=== PATIENT | female | born 1935 | race Caucasian/White ===

== ENCOUNTER 2018-01-07 08:41 | Inpatient (IN) ==
[~2018-01-07 08:41] MED LIST: Bupivacaine/Epinephrine 0.5% Inj 50 ML Vial ONE; Gelatin Size 100 Topical Foam ONE; Thrombin Topical Soln 5,000 UNIT Vial TOPICAL ONE; ceFAZolin 2 GM Premix Inj 2 GM/50 ML PIGGYBACK IV.SIG ONE
[2018-01-07] MEDS ORDERED: Chlorhexidine Gluconate 2% 1 Pack (2 Cloths) TOPICAL SCH ×2 (09:15→09:30)
[2018-01-07] MEDS ORDERED: Metoprolol Tartrate 25 MG Tablet PO SCH (09:15)
[2018-01-07] MEDS ORDERED: Sod Chloride 0.9% Inj 1,000 ML IV.SIG SCH (09:30)
[2018-01-07] MEDS ORDERED: Vancomycin Inj 1 GM/200 ML PIGGYBACK IV.SIG SCH (10:00)
[2018-01-07] MEDS ORDERED: Sodium Chlor 0.9% Inj 500 ML IV.SIG SCH (10:00)
[2018-01-07] MEDS ORDERED: Metoprolol Inj 5 MG/5 ML Vial IV.PUSH ONE (12:46)
[2018-01-07] MEDS ORDERED: Lidocaine PF 1% Inj 5 ML Syringe INFILTRATN ONE (12:46)
[2018-01-07] MEDS ORDERED: Propofol Inj 500 MG/50 ML Vial ONE (14:01)
[2018-01-07] MEDS ORDERED: HYDROmorphone PF Inj 2 MG/ML Vial ONE ×2 (17:28→17:41)
[2018-01-07] MEDS ORDERED: fentaNYL Citrate Inj 100 MCG/2 ML Ampul ONE ×2 (17:38)
--- NOTE | 2018-01-07 17:48 | XR ---
EXAM DATE: 01/07/2018 5:45 PM EDT AGE/SEX: 82 years / Female INDICATIONS: Fusion L4,L5 with screws and rods placement. CLINICAL DATA: This is the patient's initial encounter. Patient reports that signs and symptoms have been present for 1 day and indicates a pain score of Nonresponsive. MEDICAL/SURGICAL HISTORY: None. None. COMPARISON: No prior exams available for comparison. FINDINGS: AP and lateral spot images of the lumbar spine shows left-sided posterior fusion hardware in the lowe r lumbar spine. CONCLUSION: Intraoperative images showing posterior fusion hardware on the left. Electronically signed by: Arben Garza MD 01/07/2018 5:47 PM EDT
[2018-01-07] MEDS ORDERED: *Meperidine Inj 25 MG/ML Vial PERIprocedural Use ONLY ONE (17:53)
[2018-01-07] MEDS ORDERED: Acetaminophen 325 MG Tablet PO PRN (18:02)
[2018-01-07] MEDS ORDERED: Bisacodyl 10 MG Supp RECTAL PRN (18:02)
[2018-01-07] MEDS ORDERED: Naloxone Inj 0.4 MG/ML Vial IV.PUSH PRN (18:06)
[2018-01-07] MEDS ORDERED: HYDROmorphone PCA Inj 6 MG/30 ML PCA.VIAL PCA ONE (18:20)
[2018-01-07] MEDS: HYDROmorphone PCA Inj 6 MG/30 ML PCA.VIAL PCA PRN ×2 (18:30→23:53)
--- NOTE | 2018-01-07 18:30 | P.CONCC ---
History of Present Illness Primary Care Provider: Tonja Kowalski MD Family Provider: Tonja Kowalski MD History of Present Illness: 82-year-old female with multiple medical issues underwent elective L4-L5 laminectomy, interbody arthrodhesis using PEEK cage and autologous bone graft, L4-L5 instrumental fixation using transpedicular screws and rods, L4-L5 posterolateral fusion using autologous bone graft and demineralized bone matrix and microsurgical dissection by Dr. Aldrich. The procedure was uncomplicated and postprocedure the patient was admitted to ICU for medical management. Patient was evaluated in the PACU where she is comfortable, arousable but still very drowsy. Review of Systems unobtainable due to mental condition PMFSH - History History Provided By: Patient - Medical History Medical History: Medical History (Last Updated 01/07/18 @ 09:31 by Hemanth Marquez RN) Stroke (Acute) Anxiety Arthritis Basal cell carcinoma Chronic back pain Gastroparesis H/O cancer of uterus High cholesterol History of anesthesia reaction Hypertension Pulmonary embolism - Surgical History Surgical History: Surgical History (Last Updated 01/07/18 @ 09:31 by Hemanth Marquez RN) H/O section History of bilateral knee arthroplasty History of hysterectomy for cancer History of right-sided carotid endarterectomy History of total replacement of right shoulder joint History of total right hip replacement Hx of appendectomy Status post cataract extraction of both eyes with insertion of intraocular lens - Tobacco History Second Hand Smoke Exposure: No Smoking Status: Never smoker - Alcohol History How Often Do You Have a Drink Containing Alcohol: Never - Substance Use History Substance History: No History of Abuse - Travel History Recent Travel in the [place] Within the Last 8 Weeks: No Recent Travel Out of the Country Within the Last 8 Weeks: No Medications and Allergies Active Medications: Active Medications Acetaminophen (Tylenol) 650 mg PO Q4H PRN PRN Reason: TEMPERATURE > 101.5 F Hydrocodone Bitart/Acetaminophen ([place] 10/325) 1 tab PO Q4H PRN PRN Reason: Pain Scale 1 To 5 Al Hydroxide/Mg Hydroxide (Milk Of Magnesia Liq) 30 ml PO Q12H PRN PRN Reason: Mild Constipation Albuterol (Albuterol Neb (Prn)) 2.5 mg NEB Q4HR NEB PRN PRN Reason: WHEEZING Bisacodyl (Dulcolax Supp) 10 mg RECTAL DAILY PRN PRN Reason: SEVERE CONSITIPATION Chlorhexidine Gluconate (Chlorhexidine 2% Cloth) 3 pack TOPICAL SHELF STOCKER [facility] Stop: 01/10/18 09:15 Last Admin: 01/07/18 08:00 Dose: 3 pack Chlorhexidine Gluconate (Chlorhexidine 2% Cloth) 3 pack TOPICAL SHELF [employer] [facility] Stop: 01/09/18 09:31 Lactated Ringer's (Lr 1000 Ml Inj) 1,000 mls @ 30 mls/hr IV.SIG .Q24H [facility] Stop: 01/10/18 09:15 Last Admin: 01/07/18 09:45 Dose: 30 mls/hr Sodium Chloride (Ns Inj) 500 mls @ 30 mls/hr IV.SIG .Q10H [facility] Stop: 01/10/18 09:15 Sodium Chloride (Ns Inj) 1,000 mls @ 30 mls/hr IV.SIG .Q24H [facility] Vancomycin/Sodium Chloride (Vancomycin Inj) 1 gm in 200 mls @ 200 mls/hr IV.SIG [employer]LF [employer] [facility] Stop: 01/10/18 09:21 Last Admin: 01/07/18 13:39 Dose: 200 mls/hr Cefazolin Sodium/Dextrose (Ancef 2 Gm Premix Inj) 2 gm in 50 mls @ 100 mls/hr IV.SIG Q8H [facility] Stop: 01/08/18 11:29 Potassium Chloride/Sodium Chloride (Ns + Kcl 20 Meq Inj) 1,000 mls @ 100 mls/ hr IV.CONT .Q10H [facility] Hydromorphone/Sodium Chloride (Dilaudid Administrative Law Judge Inj) 6 mg in 30 mls @ 0 mls/hr [employer] BW DEVELOPER UNSCH PRN PRN Reason: per SAP BW DEVELOPER parameters Lactulose (Lactulose Liq) 30 ml PO DAILY PRN PRN Reason: SEVERE CONSITIPATION Metoprolol Tartrate (Lopressor) 25 mg PO [employer] Stop: 01/10/18 09:15 Last Admin: 01/07/18 09:50 Dose: Not Given Naloxone HCl (Narcan Inj) 0.4 mg IV.PUSH PRN PRN PRN Reason: SEE LABEL COMMENTS Povidone Iodine (Betadine 5% Antisepsis Kit) 1 applicatio EACH NARE [employer] Stop: 01/10/18 09:15 Last Admin: 01/07/18 09:49 Dose: 1 applicatio Senna/Docusate Sodium (Indy-Colace) 1 tab PO BID HERMAN Sennosides (Senokot) 17.2 mg PO Q12H PRN PRN Reason: Moderate Constipation Allergies Allergy/AdvReac Type Severity Reaction Status Date / Time adhesive Allergy Severe Hives; Verified 01/06/18 14:07 skin tear morphine Allergy Severe Headache Verified 01/06/18 14:07 simvastatin Allergy Severe CRAMPS Verified 01/06/18 14:07 cortisone Allergy Unknown unknown Verified 01/06/18 14:07 Home Medications Medication Instructions Recorded Confirmed Type aspirin 81 mg PO DAILY 01/06/18 01/07/18 History clotrimazole-betamethasone 1 applic TOPICAL BID PRN 01/06/18 01/07/18 History gabapentin 600 mg PO HS 01/06/18 01/07/18 History hydrocodone-acetaminophen 1 tab PO TID PRN 01/06/18 01/07/18 History lisinopril 5 mg PO DAILY 01/06/18 01/07/18 History methocarbamol 500 mg PO TID 01/06/18 01/07/18 History metoprolol succinate 12.5 mg PO DAILY 01/06/18 01/07/18 History multivitamin 1 tab PO DAILY 01/06/18 01/07/18 History pravastatin 20 mg PO HS 01/06/18 01/07/18 History Physical Exam Vital signs: Vital Signs 01/07/18 09:37 Temperature 97.8 F Pulse Rate 61 Respiratory Rate 18 Blood Pressure 140/53 L Pulse Oximetry 100 Intake & Output 01/06/18 01/07/18 01/07/18 18:59 06:59 18:59 Intake Total 2250 / 2250 Output Total 800 / 800 Balance 1450 / 1450 Weight 74 kg Intake: Anesthesia Amount 2250 / 2250 Output: Estimated Blood Loss 200 / 200 Urine Amount (Catheter) 600 / 600 Indwelling Urethral Catheter 600 / 600 Other: Weight On Admission 74 kg - Constitutional mild distress, somnolent - Routine HEENT Exam Head: Present: normocephalic Eye: Present: PERRL, normal accommodation ENT: Present: mucous membranes moist - Routine Neck Exam Present: supple, full ROM. Absent: JVD, carotid bruit - Routine Respiratory Exam Absent: accessory muscle use, rhonchi, stridor, wheezes - Routine Cardiovascular Exam Present: RRR, S1, S2 - Routine Abdominal Exam Present: soft, normoactive bowel sounds. Absent: tenderness, distended - Routine Extremities Exam Absent: cyanosis, clubbing, edema - Routine Skin Exam Present: intact - Routine Neurological Exam Present: alert, oriented X3 - Detailed Neurological Exam: Coma Scale Eye Opening: To sound Verbal Response: Oriented Motor Response: Obey commands Dell Coma Scale Total: 14 - Urinary Catheter Management Indwelling Urethral Catheter Cath placed during this visit: yes Reason for continuing: Hourly intake/output Insertion date: 01/07/18 Insertion time: 13:00 Assessment and Plan - Assessment and Plan Plan: Chronic back pain -Status post L4-L5 laminectomy and interbody arthrodhesis -Gabapentin -Hydromorphone as needed -Methocarbamol -PT and OT as tolerated High cholesterol -Pravastatin Hypertension -Metoprolol -Lisinopril Anxiety -Benzos as needed if indicated GI prophylaxis -Teds SCDs -Early aggressive mobilization -DVT prophylaxis per neurosurgeon -Regular diet Critical Care: The total critical care time was 35 minutes. Time to perform other separately billable procedures was not included in the critical care time.
[2018-01-07] MEDS ORDERED: ceFAZolin 2 GM Premix Inj 2 GM/50 ML PIGGYBACK IV.SIG SCH (19:00)
--- NOTE | 2018-01-07 20:00 | P.OP ---
Date of procedure: 01/08/18 Procedure: L4-L5 left laminectomy, interbody arthrodhesis using PEEK cage and autologous bone graft, L4-L5 instrumental fixation using transpedicular screws and rods, L4 -L5 posterolateral fusion using autologous bone graft and demineralized bone matrix. Microsurgical dissection Anesthesia: CARMELLA Surgeon: Balta Aldrich MD Cylinder Worker: Grace Jamil Pathology: none sent Operation and Findings: INDICATIONS FOR THE SURGICAL PROCEDURE Ms Osman is a 82 year-old female who presented with intractable mechanical back pain and china evidence of left L5 lower extremity radiculopathy. She failed maximum nonsurgical management including multiple modalities of conservative treatment as well as pain management interventions by an interventional pain specialist. A surgical decompression and arthrodhesis were indicated as a last resource. The [id number] details of the procedure, indications, alternatives, risks and potential complications were fully discussed with the patient. The patient fully understood. All the questions were answered. No guarantees were given. The patient voiced requesting the procedure and provided informed consents. The patient was offered the alternative of delaying the procedure and continuing with nonsurgical management. DETAILS OF THE SURGICAL PROCEDURE Prior to the procedure, the surgical incision was marked in the preoperative surgical holding room, and the procedure, risks, and potential complications revisited with the patient. Placement of electrodes for intraoperative neurophysiological monitoring was completed. The patient was taken to the operative room, and following induction of general anesthesia, endotracheal intubation was performed. A Fontaine catheter, bilateral MICHELET hose and sequential compression devices were placed and kept throughout the procedure. The patient was positioned prone, over a Ugo table over a Mekhi frame. All pressure in the preoperative surgical holding room points were carefully padded with eggcrate and gel mattress. The eyes were tapped shut after ointment was applied by the nesthesiologist to prevent corneal abrasion. A Radha hugger was placed over the expossed lower body to maintain control of the core body temperature. The electrophysiological team placed the needles and electrodes in their proper location and baseline SSEP's and motor evoked potentials were registered prior and following the positioning. The entrance to each pedicles was marked using a C arm. The lumbar region was prepped and draped in the usual sterile fashion. The surgical procedure was performed in several steps as follow: SURGICAL APPROACH Once the patient was positioned, a localizing cross-table lateral x-ray was performed with a C-arm. A left paramedian small incisions was outlined on the skin approximately 3cm from the midline. The skin incisions were made with a # 10 blade. Small bleeders were controlled with the cautery. The dissection was then carried out into deper planes and through the thoracolumbar fascia with a Bovie. The intermuscular septum was identified and the myscles were blunted dissected along the septum on the left side. The facets and transverse process of L4, L5 were exposed and the proper anatomical landmarks were identidied. A microsurgical self-retaining retractor was placed on the incision, and a localizing lateralizing cross-table x-ray was performed with an instrument underneath a lamina of the lumbar spine. There was a bilateral pars defect with gross instability of the bony structures. INSTRUMENTAL FIXATION At this point in the procedure, placement of left transpedicular screws was necessary for stabilization of the spine. Initially, the entry point for the screw was selected anatomically at the junction of the facet, with the transverse process, and the pars interarticularis at L4-L5. This was started with a Giamshetti needle followed by the use of a wisdom wire. A tap was used to create the threads for the screws. Finally left transpedicular screws were carefully placed on the left side at L4, L5, under fluoroscopic visualization. An appropriate purchase was achieved with all screws. The position of each screw was assessed anatomically with an AP, lateral, oblique Xrays. An intraoperative scan view of the spine was then performed using the iso -centric c-arm. Each screw was then assessed electrophysiologically with a nerve stimulator. SURGICAL DECOMPRESSION There was significant mass effect with compression of the neural structures. In order to relieve neural compression, it was necessary to perform a decompressive laminectomy, with decompression of the spinal canal and bilateral lateral recesses. Note that the scope of such decompression was significantly more extensive than the minimal exposure necessary to perform an interbody fusion, as there was extreme facet arthropathy with loss of the disk spaces and severe stenosis cause by the hyperthrophic joint facets. At this point of the procedure the operative microscope was draped in the usual sterile fashion and brought to the field. The rest of the surgical procedure was performed using microdissection technique with the exception of the closure. Under the operating microscope, a left decompressive laminectomy was carried out at L4-5 as follow: The laminae, base of the spinous processes and facets were carefully drilled exposing the ligamentum flavum. The facets were abnormal with severe facet arthropathy, vacuum facets, and mass effect over the neural structures. A broad disk protusion was contributing to compression of the neural structures and exiting L5 nerve root. A near complete facetectomy was necessary. The ligamentum flavum appeared hypertrophic, resulting on mass effect on the dorsal surface of the neural structures. The superior free border of the ligamentum flavum was elevated with a ligament dissector and the ligamentum flavum was removed with a 3 and 4 mm Kerrison forceps. The ligament was very adherent to the dural sac and during the dissection, ans extreme care was taken during the dissection. The L5 exiting nerve root was identified, and a wide foraminotomy was performed with a Kerrison in their trajectory towards the neural foramenat. Epidural veins located laterally to the dural sac were coagulated with the bipolar cautery, and then incised using microscissors. Gentle medial retraction of the dural sac allowed me to expose the disc space for the discectomy. Upon completion of the discectomy, an excellent decompression of the neural structures was achieved. INTERBODY ARTHRODHESIS At this point of the procedure, the annulus fibrosus of the disk was carefully coagulated with a bipolar cautery and incised using an 11 bladed knife. Then, a microdiscectomy was carried out in a standard fashion using a combination of straight and up-biting pituitary forceps. A reverse angle curette was applied underneath the posterior longitudinal ligament, and used to push the disk fragments into the disk space, so they can be safely removed with a pituitary forceps. Once the discectomy was completed, it was necessary to decorticate the endplates, in order to eliminate the cartilaginous endplate and to expose healthy bone appropriate to perform the interbody fusion. The endplates at L4-5 were then thoroughly decorticated using increasing size bone jennie and ring curets, eliminating the cartilaginous fragments from both, the superior and inferior endplates. A disk space distractor was applied to the pedicle screws and gentle distraction was applied. This maneuver was assisted by the use of a disk distractor. Severe facet arthropathy was noted. Once a thorough preparation of the disk space was achieved, the disk space was irrigated with antibiotic solution, and the interbody fusion was performed by carefully impacting a PEEK cage filled with autologous bone graft. The use of several shoe impactors with different angulation, allowed me for an excellent, proper position of the interbody cage. A solid position of the cage with good purchase was achieved. The position of the cages were assessed anatomically with a probe and radiologically with the C-arm. POSTEROLATERAL FUSION Initially, the left transverse processes of the vertebral bodies, lateral surface of the facets and the lateral gutters of the spine were carefully cleaned, eliminating all soft tissue and muscle attachments. The area was then irrigated with a large amount of antibiotic solution. Subsequently, the transverse processes, lateral surface of the facets, and lateral gutters of the spine were thoroughly decorticated using the TPS drill with a 5mm cutting viki, exposing cancellous bone, in preparation for the posterolateral fusion. The incision was again irrigated with antibiotic solution. Then, the posterolateral fusion was then performed by carefully packing the left lateral gutter of the spine at L4-5 with autologous bone combined with demineralized bone matrix. COMPLETION OF THE INSTRUMENTATION AND CLOSURE The rods were brought to the field, applied to all the screws, and the screw caps were sequentially applied. Compression was performed between the pedicle screws, and final tightening of the screws was completed using a torque wrench. The incision was again thoroughly irrigated with several liters of antibiotic solution, and hemostasis secured with the bipolar cautery. A Valsalva Maneuver performed by the anesthesiologist failed to show any evidence of cerebrospinal fluid leak or bleeding. A 10 mm Ugo-Wesley drain was left in the epidural space and externalized through a separate stab incision. The incision was then closed in planes. 0 Vicryl was used in an interrupted fashion to close the thoracolumbar fascia and the superficial fascia. The subcutaneous tissue was then approximated using 3-0 Vicryl in an interrupted fashion. Special care was taken to avoid space. The skin was then closed with 4-0 Vicryl in a running, subcuticular fashion. Dermabond was applied to the skin. Each plane of closure was irrigated with antibiotic solution. At the end of the procedure the sponge, needle and instrument counts were all correct. Estimated blood loss was 200 cc or less. No blood transfusion was given. The entire procedure was performed using continuous electrophysiological monitoring of the somatosensorial evoked potentials and EMG. The patient received prophylactic antibiotics. The patient was then extubated and transferred to the recovery room in stable condition.
[2018-01-07] MEDS: Senna/Docusate Sodium 8.6/50 MG Tablet PO SCH (21:33)
[2018-01-07] MEDS: ceFAZolin 2 GM/NS 100 ML IV; Q8H IV.SIG SCH ×2 (21:34)
[2018-01-08] MEDS: ceFAZolin 2 GM/NS 100 ML IV; Q8H IV.SIG SCH ×4 (05:12→13:07)
[2018-01-08 05:31] LABS: Hematocrit 37.8 % (35.0-46.0); Hemoglobin 12.4 gm/dL (11.6-15.3); Lymph # (Auto) 0.4 th/mm3 (1.0-4.8); Lymph % (Auto) 5.7 % (9.0-44.0); Mean Corpuscular HGB Conc 32.8 % (32.0-36.0); Mean Corpuscular Hemoglobin 31.8 pg (27.0-34.0); Mean Platelet Volume 8.5 fL (7.0-11.0); Mono # (Auto) 0.3 th/mm3 (0.0-0.9); Mono % (Auto) 3.6 % (0.0-8.0); Neut # (Auto) 6.7 th/mm3 (1.8-7.7); Neut % (Auto) 90.7 % (16.0-70.0); Platelet Count 126 th/mm3 (150-450); Red Cell Distribution Width 13.4 % (11.6-17.2); White Blood Count 7.4 th/mm3 (4.0-11.0)
[2018-01-08 05:55] LABS: Calcium 8.3 mg/dL (8.5-10.1); Carbon Dioxide 28.4 meq/L (21.0-32.0); Potassium 5.4 meq/L (3.5-5.1)
[2018-01-08] MEDS: Lisinopril 5 MG Tablet PO SCH (08:28)
[2018-01-08] MEDS: Senna/Docusate Sodium 8.6/50 MG Tablet PO SCH ×2 (08:37→20:54)
[2018-01-08] MEDS: Methocarbamol 500 MG Tablet PO SCH ×3 (08:37→18:41)
[2018-01-08] MEDS: HYDROmorphone PCA Inj 6 MG/30 ML PCA.VIAL PCA PRN (08:38)
[2018-01-08] MEDS ORDERED: Dextrose 50% in Water 50 ML Vial IV.PUSH ONE (08:48)
[2018-01-08] MEDS ORDERED: Melatonin 5 MG Tablet PO PRN (08:57)
--- NOTE | 2018-01-08 09:01 | P.PNCC ---
Subjective Subjective Remarks/Hospital Course: 82-year-old female with multiple medical issues underwent elective L4-L5 laminectomy, interbody arthrodhesis using PEEK cage and autologous bone graft, L4-L5 instrumental fixation using transpedicular screws and rods, L4-L5 posterolateral fusion using autologous bone graft and demineralized bone matrix and microsurgical dissection by Dr. Aldrich. The procedure was uncomplicated and postprocedure the patient was admitted to ICU for medical management. Patient was evaluated in the PACU where she is comfortable, arousable but still very drowsy. SUBJECTIVE: 01/08: Pain poorly controlled with hydromorphone LEAD MASON TENDER. Positive insomnia. Afebrile. No nausea or vomiting. Objective Vital Signs / I&O: Vital Signs 01/07/18 09:37 01/07/18 17:20 01/07/18 17:30 Temperature 97.8 F 97.5 F L Pulse Rate 61 85 82 Respiratory Rate 18 14 16 Blood Pressure 140/53 L 138/64 128/64 Pulse Oximetry 100 97 98 01/07/18 17:45 01/07/18 18:00 01/07/18 18:15 Temperature Pulse Rate 83 72 78 Respiratory Rate 23 12 20 Blood Pressure 118/57 L 105/51 L 98/45 L Pulse Oximetry 100 97 98 01/07/18 18:30 01/07/18 18:45 01/07/18 19:00 Temperature Pulse Rate 73 73 73 Respiratory Rate 17 25 H 15 Blood Pressure 93/45 L 104/52 L 99/55 L Pulse Oximetry 96 97 97 01/07/18 19:15 01/07/18 19:30 01/07/18 20:00 Temperature Pulse Rate 70 67 72 Respiratory Rate 24 18 23 Blood Pressure 96/50 L 96/49 L 101/50 L Pulse Oximetry 97 97 94 L 01/07/18 20:15 01/07/18 22:00 01/08/18 00:00 Temperature 97.5 F L 98.2 F 98.6 F Pulse Rate 78 66 62 Respiratory Rate 20 Blood Pressure 98/45 L 98/48 L 109/56 L Pulse Oximetry 94 L 97 99 01/08/18 04:00 01/08/18 08:36 Temperature 98.0 F Pulse Rate 58 L Respiratory Rate 18 Blood Pressure 104/51 L Pulse Oximetry 97 Intake & Output 08/03/18 01/08/18 01/08/18 18:59 06:59 18:59 Intake Total 2250 / 2250 3530 / 3530 Output Total 800 / 800 580 / 580 Balance 1450 / 1450 2950 / 2950 Weight 74 kg 78.2 kg Intake: IV 1100 / 1100 NS + KCl 20 mEq Inj 1,000 ML @ 1000 / 1000 100 mls/hr IV.CONT .Q10H [facility] Rx #:[id number] Ancef Inj 2,000 MG In NS Inj 80 100 / 100 ML @ 200 mls/hr IV.SIG Q8H [facility] Rx#:[id number] Oral 180 / 180 Anesthesia Amount 2250 / 2250 2250 / 2250 Output: Estimated Blood Loss 200 / 200 Urine Amount (Catheter) 600 / 600 450 / 450 Indwelling Urethral Catheter 600 / 600 450 / 450 Wound Drainage 130 / 130 # 1 Medial Back 130 / 130 Other: # Bowel Movements 0 Weight On Admission 74 kg Result Diagrams: 01/08/18 04:33 01/08/18 04:33 Imaging: Lumbar Spine X-Ray 01/07/18 00:00 CONCLUSION: Intraoperative images showing posterior fusion hardware on the left. Objective Remarks: GENERAL: 82-year-old female currently resting in bed in mild distress secondary to pain SKIN: Warm and dry. HEAD: Atraumatic. Normocephalic. EYES: Pupils equal and round. No scleral icterus. No injection or drainage. ENT: No nasal bleeding or discharge. Mucous membranes pink and moist. NECK: Trachea midline. No JVD. CARDIOVASCULAR: Bradycardic, RRR. S1, S2 no S4. Without murmur RESPIRATORY: No accessory muscle use. Clear to auscultation. Breath sounds equal bilaterally. GASTROINTESTINAL: Abdomen soft, non-tender, nondistended. Hepatic and splenic margins not palpable. MUSCULOSKELETAL: Extremities without significant peripheral edema. No obvious deformities. Medial back drain with serosanguineous drainage -130 cc NEUROLOGICAL: Awake and alert. No obvious cranial nerve deficits. Motor grossly within normal limits. Five out of 5 muscle strength in the arms and legs. Normal speech. PSYCHIATRIC: Appropriate mood and affect; insight and judgment normal. Assessment and Plan - Assessment and Plan Plan: Neuro/Psych: Postoperative day #1 L4-L5 laminectomy, interbody arthrodhesis using PEEK cage and autologous bone graft, L4-L5 instrumental fixation using transpedicular screws and rods, L4-L5 posterolateral fusion using autologous bone graft and demineralized bone matrix. Microsurgical dissection History of CVA History of left eye cataract Depression/anxiety Fibromyalgia Peripheral neuropathy Chronic pain syndrome Chronic opiate use Currently on hydrocodone/acetaminophen 10/325 1 tablet every 6 hours as needed pain 1 through 5 Currently on hydromorphone LEAD MASON TENDER per neurosurgery. On hydrocodone/acetaminophen 10/325 1 tablet 3 times daily at home Continue Neurontin 600 mg at night/home medication Continue methocarbamol 500 mg 3 times daily/home medication Postoperative neurosurgical management/drain management per Dr. 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 Remove per nursing driven protocol Endo: Sliding scale if indicated to maintain euglycemia Renal: Creatinine currently within normal limits. Monitor urine output Accurate I's and O Heme: History of uterine cancer History of basal cell carcinoma of the nares History of DVT Thrombocytopenia Monitor CBC daily. Follow trends. Initiate DVT prophylaxis when okay with neurosurgery ID: Cefazolin 2 g IV every 8 hours 3 dosages per neurosurgery FEN: Hyperkalemia Received D50/insulin/bicarbonate and potassium binder 1 now. Recheck potassium at 1300 hrs. Continue multivitamin 1 tablet daily. Normal saline with 20 mEq of KCl at 100 cc an hour MSK: Osteoarthritis Elevated BMI Weight loss encouraged PT evaluate and treat Access -Utilize peripheral IV. Central line if indicated Prophylaxis -GI -not indicated -DVT -SCD/pharmacological prophylaxis when okay with neurosurgery Level 2 follow-up
[2018-01-08] MEDS: Non-Formulary Drug (Multivitamin [Multivitamin] 1 TAB) PO SCH (13:02)
--- NOTE | 2018-01-08 15:07 | P.PNNS ---
Subjective Interval history: Postop day #1 L4-5 laminectomy and fusion. States back pain not well controlled with SMALL PRODUCTS I ASSEMBLER and hydrocodone. No complaint of numbness or pain in the lower extremities No shortness of breath. Remains in the intensive care unit. Critical care following. Positive hyperkalemia Physical Exam Vital signs: Vital Signs 01/07/18 17:20 01/07/18 17:30 01/07/18 17:45 Temperature 97.5 F L Pulse Rate 85 82 83 Respiratory Rate 14 16 23 Blood Pressure 138/64 128/64 118/57 L Pulse Oximetry 97 98 100 01/07/18 18:00 01/07/18 18:15 01/07/18 18:30 Temperature Pulse Rate 72 78 73 Respiratory Rate 12 20 17 Blood Pressure 105/51 L 98/45 L 93/45 L Pulse Oximetry 97 98 96 01/07/18 18:45 01/07/18 19:00 01/07/18 19:15 Temperature Pulse Rate 73 73 70 Respiratory Rate 25 H 15 24 Blood Pressure 104/52 L 99/55 L 96/50 L Pulse Oximetry 97 97 97 01/07/18 19:30 01/07/18 20:00 01/07/18 20:15 Temperature 97.5 F L Pulse Rate 67 72 78 Respiratory Rate 18 23 20 Blood Pressure 96/49 L 101/50 L 98/45 L Pulse Oximetry 97 94 L 94 L 01/07/18 22:00 01/08/18 00:00 01/08/18 04:00 Temperature 98.2 F 98.6 F 98.0 F Pulse Rate 66 62 58 L Respiratory Rate Blood Pressure 98/48 L 109/56 L 104/51 L Pulse Oximetry 97 99 97 01/08/18 08:00 01/08/18 08:36 01/08/18 11:43 Temperature 98.2 F Pulse Rate 61 Respiratory Rate 22 18 Blood Pressure 105/52 L Pulse Oximetry 96 01/08/18 12:00 01/08/18 13:06 01/08/18 13:24 Temperature 98.4 F Pulse Rate Respiratory Rate 23 19 22 Blood Pressure 94/74 L Pulse Oximetry 01/08/18 13:25 Temperature Pulse Rate Respiratory Rate 24 Blood Pressure Pulse Oximetry Intake & Output 01/07/18 01/08/18 01/08/18 18:59 06:59 18:59 Intake Total 2250 / 2250 3630 / 3630 Output Total 800 / 800 580 / 580 Balance 1450 / 1450 3050 / 3050 Weight 74 kg 78.2 kg Intake: IV 1200 / 1200 NS + KCl 20 mEq Inj 1,000 ML @ 1000 / 1000 100 mls/hr IV.CONT .Q10H [facility] Rx #:[id number] Ancef Inj 2,000 MG In NS Inj 80 200 / 200 ML @ 200 mls/hr IV.SIG Q8H [facility] Rx#:[id number] Oral 180 / 180 Anesthesia Amount 2250 / 2250 2250 / 2250 Output: Estimated Blood Loss 200 / 200 Urine Amount (Catheter) 600 / 600 450 / 450 Indwelling Urethral Catheter 600 / 600 450 / 450 Wound Drainage 130 / 130 # 1 Medial Back 130 / 130 Other: # Bowel Movements 0 Weight On Admission 74 kg Narrative: Patient lying in bed. SMALL PRODUCTS I ASSEMBLER in place. Respirations clear and regular Abdomen soft nontender Mild lower extremity edema Sensation intact light touch lower extremities Strength within normal limits lower extremities Moderate drain output - Urinary Catheter Management Indwelling Urethral Catheter Cath placed during this visit: yes Reason for continuing: Hourly intake/output Insertion date: 01/07/18 Insertion time: 13:00 Assessment and Plan - Plan Impression: Stable neurologic exam postop.. Moderate drain output Pain not well controlled with SMALL PRODUCTS I ASSEMBLER Hyperkalemia Plan: Out of bed with LSO. PT and LSO brace ordered, neither 1 initiated yet today. Discussed with nursing staff Continue drain Add Toradol for pain control
[2018-01-08] MEDS: Gabapentin 300 MG Capsule PO SCH (20:54)
[2018-01-09 05:55] LABS: Baso % (Auto) 0.1 % (0.0-2.0); Hematocrit 34.1 % (35.0-46.0); Hemoglobin 11.3 gm/dL (11.6-15.3); Lymph % (Auto) 11.2 % (9.0-44.0); Mean Corpuscular HGB Conc 33.2 % (32.0-36.0); Mean Corpuscular Volume 96.2 fL (80.0-100.0); Mean Platelet Volume 8.6 fL (7.0-11.0); Mono # (Auto) 0.6 th/mm3 (0.0-0.9); Mono % (Auto) 6.8 % (0.0-8.0); Neut # (Auto) 7.4 th/mm3 (1.8-7.7); Neut % (Auto) 81.9 % (16.0-70.0); Platelet Count 112 th/mm3 (150-450); Red Blood Count 3.55 mil/mm3 (4.00-5.30); Red Cell Distribution Width 13.4 % (11.6-17.2)
[2018-01-09] MEDS: Ketorolac Inj 30 MG/ML (IVP) Vial IV.PUSH SCH ×3 (06:14→17:22)
[2018-01-09 06:24] LABS: Alanine Aminotransferase 17 U/L (10-53); Albumin 2.7 g/dL (3.4-5.0); Alkaline Phosphatase 44 U/L (45-117); Anion Gap 6 meq/L (5-15); Aspartate Aminotransferase 28 U/L (15-37); Blood Urea Nitrogen 29 mg/dL (7-18); Carbon Dioxide 28.8 meq/L (21.0-32.0); Chloride 103 meq/L (98-107); Glomerular Filtration Rate 48 mL/min (>89); Glucose,Random 119 mg/dL (74-106); Phosphorus 3.2 mg/dL (2.5-4.9); Potassium 5.2 meq/L (3.5-5.1); Sodium 138 meq/L (136-145); Total Protein 5.6 g/dL (6.4-8.2)
[2018-01-09] MEDS: HYDROmorphone PCA Inj 6 MG/30 ML PCA.VIAL PCA PRN (06:58)
[2018-01-09] MEDS ORDERED: Dextrose 50% in Water 50 ML Vial IV.PUSH ONE (09:15)
[2018-01-09] MEDS ORDERED: Calcium Chloride Inj 1 GM in Sodium Chlor 0.9% Inj 100 ML IV.SIG ONE (09:15)
--- NOTE | 2018-01-09 09:22 | P.PNCC ---
Subjective Subjective Remarks/Hospital Course: 82-year-old female with multiple medical issues underwent elective L4-L5 laminectomy, interbody arthrodhesis using PEEK cage and autologous bone graft, L4-L5 instrumental fixation using transpedicular screws and rods, L4-L5 posterolateral fusion using autologous bone graft and demineralized bone matrix and microsurgical dissection by Dr. Aldrich. The procedure was uncomplicated and postprocedure the patient was admitted to ICU for medical management. Patient was evaluated in the PACU where she is comfortable, arousable but still very drowsy. 8/4: Pain poorly controlled with hydromorphone HOSPICE DIRECTOR. Positive insomnia. Afebrile. No nausea or vomiting. SUBJECTIVE: 8/5: Afebrile. Remains on hydromorphone HOSPICE DIRECTOR. Ketorolac 4 dosages ordered per neurosurgery. Tolerating diet. Objective Vital Signs / I&O: Vital Signs 01/08/18 11:43 01/08/18 12:00 01/08/18 13:06 Temperature 98.4 F Pulse Rate Respiratory Rate 23 19 Blood Pressure 94/74 L Pulse Oximetry 96 01/08/18 13:24 01/08/18 13:25 01/08/18 16:00 Temperature 97.9 F Pulse Rate 62 Respiratory Rate 22 24 19 Blood Pressure 122/66 Pulse Oximetry 01/08/18 18:30 01/08/18 18:40 01/08/18 20:00 Temperature 99.1 F Pulse Rate 64 Respiratory Rate 19 19 20 Blood Pressure 102/50 L Pulse Oximetry 01/08/18 20:23 01/09/18 00:00 01/09/18 04:00 Temperature 98.1 F 99.0 F Pulse Rate 54 L 56 L Respiratory Rate 16 18 Blood Pressure 95/45 L 108/54 L Pulse Oximetry 94 L 01/09/18 08:00 Temperature 98.6 F Pulse Rate 67 Respiratory Rate 16 Blood Pressure 117/89 Pulse Oximetry 93 L Intake & Output 01/08/18 01/09/18 01/09/18 18:59 06:59 18:59 Intake Total 2900 / 2900 680 / 680 Output Total 1230 / 1230 1120 / 1120 Balance 1670 / 1670 -440 / -440 Weight 82.6 kg Intake: Oral 650 / 650 680 / 680 Anesthesia Amount 2250 / 2250 Output: Urine 475 / 475 Estimated Blood Loss 200 / 200 Urine Amount (Catheter) 475 / 475 1100 / 1100 Indwelling Urethral Catheter 475 / 475 1100 / 1100 Wound Drainage 80 / 80 20 / 20 # 1 Medial Back 80 / 80 20 / 20 Other: # Bowel Movements 0 0 Result Diagrams: 01/09/18 05:30 01/09/18 05:30 Imaging: Lumbar Spine X-Ray 01/07/18 00:00 CONCLUSION: Intraoperative images showing posterior fusion hardware on the left. Objective Remarks: GENERAL: 82-year-old female currently resting in bed in mild distress secondary to pain SKIN: Warm and dry. HEAD: Atraumatic. Normocephalic. EYES: Pupils equal and round. No scleral icterus. No injection or drainage. ENT: No nasal bleeding or discharge. Mucous membranes pink and moist. NECK: Trachea midline. No JVD. CARDIOVASCULAR: Bradycardic, RRR. S1, S2 no S4. Without murmur RESPIRATORY: No accessory muscle use. Clear to auscultation. Breath sounds equal bilaterally. GASTROINTESTINAL: Abdomen soft, non-tender, nondistended. Hepatic and splenic margins not palpable. MUSCULOSKELETAL: Extremities without significant peripheral edema. No obvious deformities. Medial back drain with serosanguineous drainage -130 cc NEUROLOGICAL: Awake and alert. No obvious cranial nerve deficits. Motor grossly within normal limits. Five out of 5 muscle strength in the arms and legs. Normal speech. Assessment and Plan - Assessment and Plan Plan: Neuro/Psych: Postoperative day #1 L4-L5 laminectomy, interbody arthrodhesis using PEEK cage and autologous bone graft, L4-L5 instrumental fixation using transpedicular screws and rods, L4-L5 posterolateral fusion using autologous bone graft and demineralized bone matrix. Microsurgical dissection History of CVA History of left eye cataract Depression/anxiety Fibromyalgia Peripheral neuropathy Chronic pain syndrome Chronic opiate use Currently on hydrocodone/acetaminophen 10/325 1 tablet every 4 hours as needed pain 1 through 5 Currently on hydromorphone HOSPICE DIRECTOR per neurosurgery. On hydrocodone/acetaminophen 10/325 1 tablet 3 times daily at home Continue Neurontin 600 mg at night/home medication Continue methocarbamol 500 mg 3 times daily/home medication Ketorolac 50 mg IM every 6 hours 4 dosages today ordered. Postoperative neurosurgical management/drain management per Dr. Aldrich. Out of bed with LSO brace CV: Essential hypertension Hyperlipidemia PAD history of right CEA Continue lisinopril 5 mg daily and metoprolol succinate 25 mg daily/home medications for hypertension. Holding KATIE inhibitor secondary to hyperkalemia. 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 Remove per nursing driven protocol Endo: Sliding scale if indicated to maintain euglycemia Renal: Creatinine currently within normal limits. Monitor urine output Accurate I's and O Heme: History of uterine cancer History of basal cell carcinoma of the nares History of DVT Thrombocytopenia Normocytic anemia Monitor CBC daily. Follow trends. Initiate DVT prophylaxis when okay with neurosurgery ID: Cefazolin 2 g IV every 8 hours 3 dosages per neurosurgery has been completed FEN: Hyperkalemia Received D50/insulin/bicarbonate and potassium binder 1 now. Recheck potassium at 1300 hrs. Continue multivitamin 1 tablet daily. Normal saline with 20 mEq of KCl at 100 cc an hour will be discontinued today MSK: Osteoarthritis Elevated BMI Weight loss encouraged PT evaluate and treat Access -Utilize peripheral IV. Central line if indicated Prophylaxis -GI -not indicated -DVT -SCD/pharmacological prophylaxis when okay with neurosurgery Level 2 follow-up
[2018-01-09] MEDS: Lisinopril 5 MG Tablet PO SCH (09:24)
[2018-01-09] MEDS ORDERED: Sod Chloride 0.9% Inj 1,000 ML IV.CONT SCH (09:45)
[2018-01-09] MEDS: Methocarbamol 500 MG Tablet PO SCH ×3 (10:30→17:21)
[2018-01-09] MEDS: Senna/Docusate Sodium 8.6/50 MG Tablet PO SCH ×2 (10:30→22:09)
[2018-01-09] MEDS: Non-Formulary Drug (Multivitamin [Multivitamin] 1 TAB) PO SCH (10:31)
[2018-01-09] MEDS: hydrALAZINE 10 MG Tablet PO SCH ×2 (16:32→17:20)
[2018-01-09] MEDS: Gabapentin 300 MG Capsule PO SCH (22:09)
--- NOTE | 2018-01-09 23:51 | P.PNNS ---
Physical Exam Vital signs: Vital Signs 01/09/18 00:00 01/09/18 04:00 01/09/18 08:00 Temperature 98.1 F 99.0 F 98.6 F Pulse Rate 54 L 56 L 67 Respiratory Rate 16 18 16 Blood Pressure 95/45 L 108/54 L 117/89 Pulse Oximetry 93 L 01/09/18 09:42 01/09/18 10:30 01/09/18 12:00 Temperature 98.4 F Pulse Rate 56 L 68 Respiratory Rate 18 26 H 17 Blood Pressure 105/65 Pulse Oximetry 94 L 01/09/18 16:00 01/09/18 16:16 01/09/18 20:00 Temperature 98.7 F 98.2 F Pulse Rate 64 50 L Respiratory Rate 20 16 19 Blood Pressure 110/70 109/54 L Pulse Oximetry 96 94 L 01/09/18 22:11 Temperature Pulse Rate Respiratory Rate 18 Blood Pressure Pulse Oximetry Intake & Output 01/09/18 01/09/18 01/10/18 06:59 18:59 06:59 Intake Total 680 / 680 1550 / 1550 Output Total 1120 / 1120 535 / 535 Balance -440 / -440 1015 / 1015 Weight 82.6 kg Intake: IV 110 / 110 NS + KCl 20 mEq Inj 1,000 ML @ 0 / 0 100 mls/hr IV.CONT .Q10H [facility] Rx #:[id number] Calcium Chloride Inj 1 GM In NS 110 / 110 Inj 100 ML @ 110 mls/hr IV.SIG ONCE ONE Rx#:[id number] Vancomycin Inj 1 gm In 200 ml @ 0 / 0 200 mls/hr IV.SIG FLEX O WRITER OPERATOR [facility] Rx#:[id number] Oral 680 / 680 1440 / 1440 Output: Urine Amount (Catheter) 1100 / 1100 525 / 525 Indwelling Urethral Catheter 1100 / 1100 525 / 525 Wound Drainage / 20 # 1 Medial Back Other: # Bowel Movements 0 - Urinary Catheter Management Indwelling Urethral Catheter Cath placed during this visit: yes Reason for continuing: Hourly intake/output Insertion date: 01/07/18 Insertion time: 13:00 Assessment and Plan - Plan Impression: Stable neurologic exam postop.. Moderate drain output Pain not well controlled with INFUSION PHARMACIST Hyperkalemia Plan: Out of bed with LSO. PT and LSO brace ordered, neither 1 initiated yet today. Discussed with nursing staff Continue drain Add Toradol for pain control
[2018-01-10] MEDS: Ketorolac Inj 30 MG/ML (IVP) Vial IV.PUSH SCH (00:24)
[2018-01-10 03:49] LABS: Baso % (Auto) 0.2 % (0.0-2.0); Eos % (Auto) 0.3 % (0.0-4.0); Hemoglobin 10.8 gm/dL (11.6-15.3); Lymph # (Auto) 1.5 th/mm3 (1.0-4.8); Lymph % (Auto) 26.5 % (9.0-44.0); Mean Corpuscular HGB Conc 33.6 % (32.0-36.0); Mean Corpuscular Hemoglobin 32.1 pg (27.0-34.0); Mean Corpuscular Volume 95.4 fL (80.0-100.0); Mean Platelet Volume 8.7 fL (7.0-11.0); Mono # (Auto) 0.6 th/mm3 (0.0-0.9); Mono % (Auto) 10.2 % (0.0-8.0); Neut # (Auto) 3.4 th/mm3 (1.8-7.7); Neut % (Auto) 62.8 % (16.0-70.0); Platelet Count 96 th/mm3 (150-450); Red Blood Count 3.36 mil/mm3 (4.00-5.30); Red Cell Distribution Width 13.3 % (11.6-17.2); White Blood Count 5.5 th/mm3 (4.0-11.0)
[2018-01-10 04:05] LABS: Calcium 8.7 mg/dL (8.5-10.1)
[2018-01-10 05:12] LABS: Platelet Morphology Normal (Normal)
--- NOTE | 2018-01-10 08:09 | P.PNCC ---
Subjective Subjective Remarks/Hospital Course: 82-year-old female with multiple medical issues underwent elective L4-L5 laminectomy, interbody arthrodhesis using PEEK cage and autologous bone graft, L4-L5 instrumental fixation using transpedicular screws and rods, L4-L5 posterolateral fusion using autologous bone graft and demineralized bone matrix and microsurgical dissection by Dr. Aldrich. The procedure was uncomplicated and postprocedure the patient was admitted to ICU for medical management. Patient was evaluated in the PACU where she is comfortable, arousable but still very drowsy. 8/4: Pain poorly controlled with hydromorphone VERMIN EXTERMINATOR. Positive insomnia. Afebrile. No nausea or vomiting. SUBJECTIVE: 8/5: Afebrile. Remains on hydromorphone VERMIN EXTERMINATOR. Ketorolac 4 dosages ordered per neurosurgery. Tolerating diet. 8/6: Lying comfortably in bed complains of pain. Waiting for nurse to administer pain meds. Tolerating diet Objective Vital Signs / I&O: Vital Signs 01/09/18 09:42 01/09/18 10:30 01/09/18 12:00 Temperature 98.4 F Pulse Rate 56 L 68 Respiratory Rate 18 26 H 17 Blood Pressure 105/65 Pulse Oximetry 94 L 01/09/18 16:00 01/09/18 16:16 01/09/18 20:00 Temperature 98.7 F 98.2 F Pulse Rate 64 50 L Respiratory Rate 20 16 19 Blood Pressure 110/70 109/54 L Pulse Oximetry 96 94 L 01/09/18 22:11 01/10/18 00:00 01/10/18 00:23 Temperature 98.7 F Pulse Rate 49 L Respiratory Rate 18 32 H 21 Blood Pressure 104/54 L Pulse Oximetry 94 L 01/10/18 02:50 01/10/18 02:52 01/10/18 04:00 Temperature 98.6 F Pulse Rate 46 L Respiratory Rate 24 23 26 H Blood Pressure 130/60 Pulse Oximetry 97 Intake & Output 01/09/18 01/10/18 01/10/18 18:59 06:59 18:59 Intake Total 1550 / 1550 2670 / 2670 Output Total 535 / 535 1410 / 1410 Balance 1015 / 1015 1260 / 1260 Weight 82.6 kg Intake: IV 110 / 110 NS + KCl 20 mEq Inj 1,000 ML @ 0 / 0 100 mls/hr IV.CONT .Q10H [facility] Rx #:[id number] Calcium Chloride Inj 1 GM In NS 110 / 110 Inj 100 ML @ 110 mls/hr IV.SIG ONCE ONE Rx#:[id number] Vancomycin Inj 1 gm In 200 ml @ 0 / 0 200 mls/hr IV.SIG BALL WORKER [facility] Rx#:[id number] Oral 1440 / 1440 420 / 420 Anesthesia Amount 2250 / 2250 Output: Estimated Blood Loss 200 / 200 Urine Amount (Catheter) 525 / 525 1200 / 1200 Indwelling Urethral Catheter 525 / 525 1200 / 1200 Wound Drainage # 1 Medial Back Other: # Bowel Movements 0 Result Diagrams: 01/10/18 02:53 01/10/18 02:53 Objective Remarks: GENERAL: 82-year-old female currently resting in bed in mild distress secondary to pain SKIN: Warm and dry. HEAD: Atraumatic. Normocephalic. EYES: Pupils equal and round. No scleral icterus. No injection or drainage. ENT: No nasal bleeding or discharge. Mucous membranes pink and moist. NECK: Trachea midline. No JVD. CARDIOVASCULAR: Bradycardic, RRR. S1, S2 no S4. Without murmur RESPIRATORY: No accessory muscle use. Clear to auscultation. Breath sounds equal bilaterally. GASTROINTESTINAL: Abdomen soft, non-tender, nondistended. Hepatic and splenic margins not palpable. MUSCULOSKELETAL: Extremities without significant peripheral edema. No obvious deformities. Medial back drain with serosanguineous drainage NEUROLOGICAL: Awake and alert. No obvious cranial nerve deficits. Motor grossly within normal limits. Assessment and Plan - Assessment and Plan Plan: Neuro/Psych: Postoperative day #2 L4-L5 laminectomy, interbody arthrodhesis using PEEK cage and autologous bone graft, L4-L5 instrumental fixation using transpedicular screws and rods, L4-L5 posterolateral fusion using autologous bone graft and demineralized bone matrix. Microsurgical dissection History of CVA History of left eye cataract Depression/anxiety Fibromyalgia Peripheral neuropathy Chronic pain syndrome Chronic opiate use Currently on hydrocodone/acetaminophen 10/325 1 tablet every 4 hours as needed pain 1 through 5 Currently on hydromorphone VERMIN EXTERMINATOR per neurosurgery. On hydrocodone/acetaminophen 10/325 1 tablet 3 times daily at home Continue Neurontin 600 mg at night/home medication Continue methocarbamol 500 mg 3 times daily/home medication Ketorolac 50 mg IM every 6 hours 4 dosages today ordered. Postoperative neurosurgical management/drain management per Dr. Aldrich. Out of bed with LSO brace CV: Essential hypertension Hyperlipidemia PAD history of right CEA Continue lisinopril 5 mg daily and metoprolol succinate 25 mg daily/home medications for hypertension. Holding KATIE inhibitor secondary to hyperkalemia. 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 Monitor urine output Accurate I's and O Heme: History of uterine cancer History of basal cell carcinoma of the nares History of DVT Thrombocytopenia Normocytic anemia Monitor CBC daily. Follow trends. Initiate DVT prophylaxis when okay with neurosurgery ID: Cefazolin 2 g IV every 8 hours 3 dosages per neurosurgery has been completed FEN: Hyperkalemia Received D50/insulin/bicarbonate and potassium binder 1 now. Potassium is 5 today Continue multivitamin 1 tablet daily. Access -Utilize peripheral IV. Central line if indicated Prophylaxis -GI -not indicated -DVT -SCD/pharmacological prophylaxis when okay with neurosurgery Level 2 follow-up Ok to transfer to Med-Surg. Order placed
[2018-01-10] MEDS: hydrALAZINE 10 MG Tablet PO SCH (09:26)
[2018-01-10] MEDS: Methocarbamol 500 MG Tablet PO SCH (09:26)
[2018-01-10] MEDS: Senna/Docusate Sodium 8.6/50 MG Tablet PO SCH (09:26)
--- NOTE | 2018-01-10 10:01 | P.PNNS ---
Subjective Interval history: 01/10/18: Pt s/p L4-L5 left laminectomy, interbody arthrodesis using PEEK cage and autologous bone graft, L4-L5 instrumental fixation using transpedicular screws and rods, L4-L5 posterolateral fusion using autologous bone graft and demineralized bone matrix by Dr. Aldrich on 01/07/18. She states she is doing well and is adamant she be discharged home today. She has some pain in the left buttock and posterior thigh and sometimes into the left groin but states it is very manageable. She has been off her [employer] since yesterday. She states she ambulated down the [place] with PT. Physical Exam Vital signs: Vital Signs 01/09/18 10:30 01/09/18 12:00 01/09/18 16:00 Temperature 98.4 F 98.7 F Pulse Rate 68 64 Respiratory Rate 26 H 17 20 Blood Pressure 105/65 110/70 Pulse Oximetry 94 L 96 01/09/18 16:16 01/09/18 20:00 01/09/18 22:11 Temperature 98.2 F Pulse Rate 50 L Respiratory Rate 16 19 18 Blood Pressure 109/54 L Pulse Oximetry 94 L 01/10/18 00:00 01/10/18 00:23 01/10/18 02:50 Temperature 98.7 F Pulse Rate 49 L Respiratory Rate 32 H 21 24 Blood Pressure 104/54 L Pulse Oximetry 94 L 01/10/18 02:52 01/10/18 04:00 Temperature 98.6 F Pulse Rate 46 L Respiratory Rate 23 26 H Blood Pressure 130/60 Pulse Oximetry 97 Intake & Output 01/09/18 01/10/18 01/10/18 18:59 06:59 18:59 Intake Total 1550 / 1550 2670 / 2670 Output Total 535 / 535 1410 / 1410 Balance 1015 / 1015 1260 / 1260 Weight 82.6 kg Intake: IV 110 / 110 NS + KCl 20 mEq Inj 1,000 ML @ 0 / 0 100 mls/hr IV.CONT .Q10H [facility]MAN Rx #:[id number] Calcium Chloride Inj 1 GM In NS 110 / 110 Inj 100 ML @ 110 mls/hr IV.SIG ONCE ONE Rx#:[id number] Vancomycin Inj 1 gm In 200 ml @ 0 / 0 200 mls/hr IV.SIG [employer] [facility]MAN Rx#:[id number] Oral 1440 / 1440 420 / 420 Anesthesia Amount 2250 / 2250 Output: Estimated Blood Loss 200 / 200 Urine Amount (Catheter) 525 / 525 1200 / 1200 Indwelling Urethral Catheter 525 / 525 1200 / 1200 Wound Drainage # 1 Medial Back Other: # Bowel Movements 0 - Constitutional no acute distress, average body habitus - Routine HEENT Exam Head: Present: normocephalic, atraumatic Eye: Present: PERRL - Routine Neck Exam Present: trachea midline - Routine Respiratory Exam Present: CTA bilaterally. Absent: rales, respiratory distress, rhonchi, wheezes - Routine Cardiovascular Exam Present: RRR, S1, S2. Absent: murmur - Routine Abdominal Exam Present: soft, normoactive bowel sounds. Absent: tenderness, firm, rigid - Routine Skin Exam Present: wounds (RN states incision clean and dry.). Absent: cyanosis, erythema - Routine Neurological Exam Present: alert, oriented X3, moving all extremities, normal speech. Absent: sensory deficit, motor deficit, altered mental status - Routine Psychiatric Exam Present: normal affect, cooperative, good judgment. Absent: anxious, agitated - Urinary Catheter Management Indwelling Urethral Catheter Cath placed during this visit: yes Reason for continuing: Hourly intake/output Insertion date: 01/07/18 Insertion time: 13:00 Assessment and Plan - Assessment (1) Lumbar degenerative disc disease Code(s): M51.36 - Other intervertebral disc degeneration, lumbar region Status : Acute (2) Peripheral neuropathy Code(s): G62.9 - Polyneuropathy, unspecified Status: Acute - Plan Impression: Stable neurologic exam postop. She is adamant she be discharged home. Her pain is controlled and she has been off [employer] since yesterday. Vitals are stable. She has her brace on and has ambulated with PT. She states she doesn' t need a walker as she has everything she needs at home. Plan: D/C [place] D/C home today if voiding well. Follow up with Dr. Aldrich. Call office for appointment if she does not have one.
--- NOTE | 2018-01-10 10:12 | P.DCO ---
- Physical Therapy Order: Evaluate and treat, Improve ambulation, Strength and gait training - Home Health Nursing Order: Wound care and dressing changes, Nursing assessment with vital signs - Certification I have seen patient Nohelia Osman on 01/10/18. My clinical findings support the need for the requested home health care services because: Limited mobility due to disease progression, Deconditioned with increased weakness, High risk of falls I certify that my clinical findings support that this patient is homebound because: Post-op weakness, Unsteady gait/balance, Unable to use public transportation
[2018-01-10] MEDS: Non-Formulary Drug (Multivitamin [Multivitamin] 1 TAB) PO SCH (11:19)
--- NOTE | 2018-01-26 13:17 | P.DS ---
Date of admission: 01/07/18 08:41 Primary care physician: Tonja Kowalski MD Brief History from admission: Ms Osman is a 82 year-old female who presented with intractable mechanical back pain and [place] evidence of left L5 lower extremity radiculopathy. She failed maximum nonsurgical management including multiple modalities of conservative treatment as well as pain management interventions by an interventional pain specialist. A surgical decompression and arthrodhesis were indicated as a last resource. DS: Medications - Discharge Medications Prescriptions: hydrocodone-acetaminophen 1 tab PO Q4HR PRN #60 tab PRN Reason: Pain hydrocodone-acetaminophen 1 tab PO Q4H PRN #60 tab PRN Reason: Pain DS: Summary Hospital Course: Ms. Osman underwent L4-L5 left laminectomy, interbody arthrodhesis using PEEK cage and autologous bone graft, L4-L5 instrumental fixation using transpedicular screws and rods, L4-L5 posterolateral fusion using autologous bone graft and demineralized bone matrix, microsurgical dissection on 01/08/18. Her surgery went well without complications. She was discharged home in stable conditions. - Time Spent with Patient Total time spent providing and/or coordinating discharge services: Less than 30 minutes - Quality: VTE Deep Vein Thrombosis/Pulmonary Embolism Present on Admission: No Results Procedures completed during hospitalization: L4-L5 left laminectomy, interbody arthrodhesis using PEEK cage and autologous bone graft, L4-L5 instrumental fixation using transpedicular screws and rods, L4 -L5 posterolateral fusion using autologous bone graft and demineralized bone matrix, microsurgical dissection - Impressions ITS Impressions Lumbar Spine X-Ray 01/07/18 00:00 CONCLUSION: Intraoperative images showing posterior fusion hardware on the left. Discharge Plan - Discharge Disposition Patient Disposition: Discharge Home - Discharge Condition Condition: Good - Discharge Order Discharge Orders: Discharge Order (Routine); Ordered 01/10/18 Ordered By: Wilman Rubin - Discharge Details Anticipated Discharge Date: 01/10/18 - Physicians Team Primary Care Provider: Tonja Kowalski Attending Provider: Balta Aldrich Other Providers: Rafa Lambert MD ; Nga Velázquez MD ; Alexys Mckinley MD ; [facility] - Rxs /Orders / Referrals /Forms Prescriptions: New hydralazine 10 mg Tablet 10 mg PO TID Qty: 90 RF: 0 hydrocodone-acetaminophen 10-325 mg Tablet 1 tab PO Q4H PRN (Reason: Pain) Qty: 60 RF: 0 Continue aspirin 81 mg Tablet,Delayed Release (Dr/Ec) 81 mg PO DAILY clotrimazole-betamethasone 1-0.05 % Cream 1 applic TOPICAL BID PRN (Reason: Rash) gabapentin 300 mg Capsule 600 mg PO HS lisinopril 5 mg Tablet 5 mg PO DAILY methocarbamol 500 mg Tablet 500 mg PO TID metoprolol succinate 25 mg Tablet Extended Release 24 Hr 12.5 mg PO DAILY multivitamin Tablet 1 tab PO DAILY pravastatin 20 mg Tablet 20 mg PO HS Changed hydrocodone-acetaminophen 10-325 mg Tablet 1 tab PO Q4HR PRN (Reason: Pain) Qty: 60 Changed from: 1 tab oral three times a day as needed Referrals: Tonja Kowalski MD [Primary Care Provider] - See Instructions - Discharge Instructions Patient Printed Instructions: Laminectomy (DC)
== END 2018-01-10 12:47 | disposition home or self-care (01) ==
LOC: HSDI 08:41 → N03 20:23
PROVIDERS: ADMIT Neurological Surgery; ATTEND Neurological Surgery